=== PATIENT | female | born 1970 | race Two or more races ===

== ENCOUNTER 2017-01-18 05:08 | Emergency (ER) | payer MEDICAID ==
[~2017-01-18] VITALS: Ht 157.5 cm; Wt 93.9 kg
[~2017-01-18 05:08] MED LIST: CEPHALEXIN500 MG ORAL; COLACE100 MG ORAL; IBUPROFEN200 MG ORAL; KEFLEX500 MG ORAL; NAPROSYN500 M1 ORAL; NAPROXEN SODIU550 M1 ORAL; NAPROXEN500 M2 ORAL; NKM; NORCO 5-325 TA1 EACH ORAL; OMEPRAZOLE20 M2 ORAL; ZOFRAN ODT4 MG ORAL
[2017-01-18 05:27] VITALS: BP 133/86
[2017-01-18] MEDS ORDERED: PREPARATION H C51 GM TP (05:27)
[2017-01-18] MEDS ORDERED: PREPARATION H1 EAC3 RC (05:27)
[2017-01-18] MEDS ORDERED: LIDOCAINE HCL5 ML MM (05:27)
[2017-01-18] MEDS ORDERED: Lidocaine HCl 2% Jelly 5ml Tube TOPIC ONE (05:30)
[2017-01-18 05:37] VITALS: BP 133/86
--- NOTE | 2017-01-18 19:02 | Emergency Room Report ---
History of Present Illness General Chief Complaint: Pain Source: Patient Present Illness HPI 47 YOF with known hemorrhoids presents with rectal pain for 3 days, worse with defecation/straining. Has been taking stool softener and applying hydrocortisone cream. Blood on paper but no yara bleeding. Denies abd pain, nausea/vomiting, fever/chills, history of abd/pelvic surgery. Allergies: Coded Allergies: No Known Allergies (Unverified , 07/30/14) Patient History Past Medical History: other - hemorrhoids Past Surgical History: none Pertinent Family History: none Now: No Immunizations: UTD Reviewed Nursing Documentation: PMH: Agreed, PSxH: Agreed Nursing Documentation-PMH Hx Cardiac Problems: No Hx Diabetes: Yes Hx Cancer: No Hx Gastrointestinal Problems: Yes - Fatty Liver Hx Neurological Problems: No Review of Systems All Other Systems: negative except mentioned in HPI Physical Exam Vital Signs Date Time Temp Pulse Resp B/P Pulse Ox O2 Delivery O2 Flow Rate FiO2 01/18/17 05:09 97.9 72 16 133/86 97 01/18/17 05:27 Room Air Sp02 EP Interpretation: reviewed, normal General Appearance: normal inspection, well appearing, no apparent distress, alert Head: normocephalic, atraumatic Eyes: bilateral eye EOMI, bilateral eye PERRL ENT: normal ENT inspection, hearing grossly normal, normal voice Neck: normal inspection, full range of motion, supple, no bony tend Respiratory: normal inspection, lungs clear, normal breath sounds, no respiratory distress, no retraction, no wheezing Cardiovascular #1: regular rate, rhythm, no edema Gastrointestinal: normal inspection, normal bowel sounds, non tender, soft, no guarding, no hernia Rectal: deferred Genitourinary: no CVA tenderness Musculoskeletal: normal inspection, back normal, normal range of motion, Janeth' s Sign negative Neurologic: normal inspection, alert, oriented x3, responsive, feeder driver III-XII nml as tested, speech normal Psychiatric: normal inspection, judgement/insight normal, mood/affect normal Skin: normal inspection, normal color, no rash Lymphatic: normal inspection Medical Decision Making Diagnostic Impression: Primary Impression: Hemorrhoids Qualified Codes: K64.9 - Unspecified hemorrhoids ER Course Topical lidocaine applied in ED Rx hydrocortisone cream, suppository and topical lido Advised pMD followup for GI referral if no improvement DC home Last Vital Signs Date Time Temp Pulse Resp B/P Pulse Ox O2 Delivery O2 Flow Rate FiO2 01/18/17 05:37 97.9 78 16 133/86 97 Room Air Status: improved Disposition: HOME, SELF-CARE Condition: Improved Scripts Lidocaine Hcl (LIDOCAINE HCL) 5 Ml Jel.pf.tres 5 ML MM TID for 7 Days, #1 UNIT Prov: DEISI BURGER M.D. 01/18/17 Phenylephrine Hcl/Witch Fartun (PREPARATION H COOLING GEL) 51 Gm Gel..gram. 51 GM TP TID for 7 Days, GM Prov: DEISI BURGER M.D. 01/18/17 Phenylephrine HCl/[place] Butter (Preparation H Suppository) 1 Each Supp.rect 1 EACH RC BID for 7 Days, #14 SUPP Prov: DEISI BURGER M.D. 01/18/17 Referrals: NOT CHOSEN BRU[facility]/,REFERRING (PCP) Patient Instructions: Hemorrhoids, [id number] DEISI BURGER M.D. Jan 18, 2017 19:02
== END 2017-01-18 05:40 | disposition home or self-care (01) ==
LOC: EMR 05:25
DX: K64.9 Unspecified hemorrhoids (principal); E11.9 Type 2 diabetes mellitus without complications
CPT/HCPCS: 99284

== ENCOUNTER 2017-04-10 20:24 | Emergency (ER) | payer MEDICAID ==
[~2017-04-10] VITALS: Ht 162.6 cm; Wt 93.0 kg
[~2017-04-10 20:24] MED LIST changes: +LIDOCAINE HCL5 ML MM; +PREPARATION H C51 GM TP; +PREPARATION H1 EAC3 RC
[2017-04-10] MEDS ORDERED: Acetaminophen 500mg (ES) tab ORAL ONE (21:15)
[2017-04-10 22:38] LABS: APPEARANCE,URINE CLEAR; KETONES,URINE NEGATIVE (NEGATIVE); LEUKOCYTE ESTERASE ,URINE NEGATIVE (NEGATIVE); NITRITE,URINE NEGATIVE (NEGATIVE); PH,URINE 7 (4.5-8.0); PROTEIN,URINE NEGATIVE (NEGATIVE); UROBILINOGEN,URINE NORMAL MG/DL (0.0-1.0)
[2017-04-10] MEDS ORDERED: Ketorolac 30mg Inj IM ONE (23:30)
[2017-04-11] MEDS ORDERED: COLACE100 MG ORAL (00:20)
[2017-04-11] MEDS ORDERED: TYLENOL EXTRA500 MG ORAL (00:20)
[2017-04-11] MEDS ORDERED: MAGNESIUM CITR296 M1 PO (00:20)
[2017-04-11 01:11] VITALS: BP 130/88
--- NOTE | 2017-04-12 08:28 | Diagnostic Imaging Report ---
Indication: Abdominal pain Technique: Continuous helical transaxial imaging of the abdomen and pelvis was obtained from the lung bases to the pubic symphysis. No intravenous contrast was administered. Coronal 2-D reformats were also obtained. Total Dose length Product (DLP): [address] Dose Index Volume (CTDIvol): 30 mGy Comparison: none Findings: Appendix is normal. There is no nephrolithiasis or hydronephrosis. Lung bases are clear. No free fluid or free air identified. Suggestion of left ovarian cysts. Mild hypertrophy of the lower lumbar facets noted. Impression: No acute findings. Suggestion of left ovarian cysts. [facility] has communicated the preliminary results to the Emergency Department. Their findings are largely concordant with this report. The CT scanner at [facility] is accredited by the [employer] and the scans are performed using dose optimization techniques as appropriate to a performed exam including Automatic Exposure control.
--- NOTE | 2017-04-13 08:07 | Emergency Room Report ---
History of Present Illness General Chief Complaint: Female Urogenital Problems Source: Patient Present Illness HPI 47-year-old female presents to ED complaining of right-sided flank pain. States symptoms started yesterday. 8 out of 10, sharp, nonradiating. States she is having some dysuria. Denies hematuria. Denies fevers or chills. Denies nausea or vomiting. No other aggravating or relieving factors. Denies any other associated symptoms Allergies: Coded Allergies: No Known Allergies (Unverified , 07/30/14) Patient History Past Medical History: DM Pertinent Family History: none Social History: Denies: alcohol use, drug use, smoking Last Menstrual Period: Menopause Now: No Immunizations: UTD Reviewed Nursing Documentation: PMH: Agreed, PSxH: Agreed Nursing Documentation-PMH Past Medical History: No History, Except For Hx Cardiac Problems: No - High Chlosterol Hx Diabetes: Yes Hx Cancer: No Hx Gastrointestinal Problems: Yes - Fatty Liver Hx Neurological Problems: No Review of Systems All Other Systems: negative except mentioned in HPI Physical Exam Vital Signs Date Time Temp Pulse Resp B/P Pulse Ox O2 Delivery O2 Flow Rate FiO2 04/10/17 20:51 98.4 85 16 117/68 100 Room Air Sp02 EP Interpretation: reviewed, normal General Appearance: no apparent distress, alert, GCS 15, non-toxic, obese Head: normocephalic, atraumatic Eyes: bilateral eye PERRL, bilateral eye normal inspection ENT: hearing grossly normal, normal pharynx, no angioedema, normal voice Neck: full range of motion, supple/symm/no masses Respiratory: chest non-tender, lungs clear, normal breath sounds, speaking full sentences Cardiovascular #1: regular rate, rhythm, no edema Cardiovascular #2: 2+ carotid (R), 2+ carotid (L), 2+ radial (R), 2+ radial (L) , 2+ dorsalis pedis (R), 2+ dorsalis pedis (L) Gastrointestinal: normal bowel sounds, non tender, soft, non-distended, no guarding, no rebound Rectal: deferred Genitourinary: normal inspection, no CVA tenderness, CVA tenderness (R) Musculoskeletal: back normal, gait/station normal, normal range of motion, non- tender Neurologic: alert, oriented x3, responsive, motor strength/tone normal, sensory intact, speech normal Psychiatric: judgement/insight normal, memory normal, mood/affect normal, no suicidal/homicidal ideation Reflexes: 3+ bicep (R), 3+ bicep (L), 3+ tricep (R), 3+ tricep (L), 3+ knee (R) , 3+ knee (L) Skin: normal color, no rash, warm/dry, well hydrated Lymphatic: no adenopathy Medical Decision Making Diagnostic Impression: Primary Impression: Constipation Qualified Codes: K59.00 - Constipation, unspecified ER Course Hospital Course 47-year-old female presents to ED complaining of right-sided flank pain Differential diagnosis includes - kidney stone, pyelonephritis, muscular pain Clinical course Patient placed on stretcher. After initial history and physical I ordered UA and pain medications Labs -UA unremarkable CT- copious stool noted, no evidence of kidney stone Upon reassessment, patient states pain has improved. Given improvement in symptoms and lack of acute findings, I believe patient can be safely discharged to home. Patient agrees with plan I feel this is a highly complex case requiring extensive working including EKG/ Rhythm strip, Xray/CT/US, Blood/urine lab work, repeat exams while in ED, and administration of strong opiates/narcotics for pain control, admission to hospital or close patient follow up. Diagnosis - constipation Stable and discharged to home with Rx Mag citrate, Colace. instructed on high- fiber diet. Followup with PMD. Return to ED if symptoms recur or worsen Labs Test 04/10/17 21:58 Urine Color Pale yellow Urine Appearance Clear Urine pH 7 (4.5-8.0) Urine Specific [place] 1.015 (1.005-1.035) Urine Protein Negative (NEGATIVE) Urine Glucose (UA) Negative (NEGATIVE) Urine Ketones Negative (NEGATIVE) Urine Occult Blood Negative (NEGATIVE) Urine Nitrite Negative (NEGATIVE) Urine Bilirubin Negative (NEGATIVE) Urine Urobilinogen Normal MG/DL (0.0-1.0) Urine Leukocyte Esterase Negative (NEGATIVE) Urine HCG, Qualitative Negative CT/MRI/US Diagnostic Results CT/MRI/US Diagnostic Results : Imaging Test Ordered: CT A/P Impression R sided stool impaction. no evidence of kidney stone Last Vital Signs Date Time Temp Pulse Resp B/P Pulse Ox O2 Delivery O2 Flow Rate FiO2 04/11/17 01:11 98.8 66 18 130/88 100 Room Air Status: improved Disposition: HOME, SELF-CARE Condition: Stable Scripts Acetaminophen* (TYLENOL EXTRA STRENGTH*) 500 Mg Tablet 500 MG ORAL Q8H Y for Prn Headache/Temp > 101, #30 TAB 0 Refills Prov: DENISE AVERY M.D. 04/11/17 Magnesium Citrate (MAGNESIUM CITRATE) 296 Ml Solution 150 ML PO DAILY for 2 Days, UNIT Prov: DENISE AVERY M.D. 04/11/17 Docusate Sodium* (COLACE*) 100 Mg Capsule 100 MG ORAL THREE TIMES A DAY, #30 CAP Prov: DENISE AVERY M.D. 04/11/17 Referrals: NOT CHOSEN [facility]/,REFERRING (PCP) Patient Instructions: Constipation, Adult, [id number] DENISE AVERY M.D. Apr 13, 2017 08:07
== END 2017-04-11 01:11 | disposition home or self-care (01) ==
LOC: EMR 21:29
DX: K59.00 Constipation, unspecified (principal); R30.0 Dysuria; E11.9 Type 2 diabetes mellitus without complications
CPT/HCPCS: 74176; 81003; 81025; 96372; 99283; J1885

== ENCOUNTER 2017-05-06 17:18 | Emergency (ER) | payer MEDICAID ==
[~2017-05-06] VITALS: Ht 160 cm; Wt 72.6 kg
[~2017-05-06 17:18] MED LIST changes: +MAGNESIUM CITR296 M1 PO; +TYLENOL EXTRA500 MG ORAL
[2017-05-06 17:35] VITALS: BP 126/76
[2017-05-06] MEDS ORDERED: Morphine Sulfate 10mg/ml Inj IVP ONE (17:45)
--- NOTE | 2017-05-06 17:48 | Emergency Room Report ---
History of Present Illness General Chief Complaint: Abdominal Pain Source: Patient Present Illness HPI 47 YO Female presents to the ED c/o 08/18 in severity abdominal pain with nausea, vomiting, and diarrhea x 2 days. pt. localizes pain to the epigastric area, denies blood in the vomit or stool. pt reports subjective/ non measured fevers. denies recent travel or ill contacts, reports previous hx of Dm, and fatty liver, but denies right sided abdominal pain. pt. denies tenderness. denies rashes, frequency , dysuria, polydipsia. Denies CP, Palpitations, LOC, AMS, dizziness, Changes in Vision, Sensation, paresthesias, or a sudden severe headache. Allergies: Coded Allergies: No Known Allergies (Unverified , 07/30/14) Patient History Past Medical History: see triage record Past Surgical History: none Pertinent Family History: none Now: No Immunizations: UTD Reviewed Nursing Documentation: PMH: Agreed, PSxH: Agreed Nursing Documentation-PMH Past Medical History: No History, Except For Hx Cardiac Problems: No - High Chlosterol Hx Diabetes: Yes Hx Cancer: No Hx Gastrointestinal Problems: Yes - Fatty Liver Hx Neurological Problems: No Review of Systems All Other Systems: negative except mentioned in HPI Physical Exam Vital Signs Date Time Temp Pulse Resp B/P Pulse Ox O2 Delivery O2 Flow Rate FiO2 05/06/17 17:30 98.2 74 16 126/76 96 Room Air Sp02 EP Interpretation: reviewed, normal General Appearance: no apparent distress, alert, GCS 15, non-toxic Head: normocephalic, atraumatic Eyes: bilateral eye PERRL, bilateral eye normal inspection ENT: hearing grossly normal, normal pharynx, no angioedema, normal voice Neck: full range of motion, supple/symm/no masses Respiratory: lungs clear, normal breath sounds, speaking full sentences Cardiovascular #1: regular rate, rhythm, no edema Gastrointestinal: normal bowel sounds, soft, no guarding, no rebound, tenderness - epigastric (middle) no lower quadrant TTP, no peritoneal signs, abdomen is soft. Rectal: deferred Musculoskeletal: back normal, gait/station normal, normal range of motion, non- tender Neurologic: alert, oriented x3, responsive, motor strength/tone normal, sensory intact, speech normal Psychiatric: judgement/insight normal, memory normal, mood/affect normal Skin: normal color, no rash, warm/dry, well hydrated Medical Decision Making PA Attestation Dr. Chavira is my supervising Physician whom patient management has been discussed with. Diagnostic Impression: Primary Impression: Gastroenteritis ER Course 47 YO Female presents to the ED c/o 08/18 in severity abdominal pain with nausea, vomiting, and diarrhea x 2 days. pt. localizes pain to the epigastric area, denies blood in the vomit or stool. pt reports subjective/ non measured fevers. denies recent travel or ill contacts, reports previous hx of Dm, and fatty liver, but denies right sided abdominal pain. pt. denies tenderness. denies rashes, frequency , dysuria, polydipsia. Denies CP, Palpitations, LOC, AMS, dizziness, Changes in Vision, Sensation, paresthesias, or a sudden severe headache. Ddx considered but are not limited to Diverticulitis, acute appy, diarrhea,UC, PUD, GE, pancreatitis, gallstone Vital signs: are WNL, pt. is afebrile H&PE are most consistent with gastroenteritis ORDERS: -CBC, CMP, lipase, and UA all unremarkable no evidence of infection, electrolytes are ok. ED INTERVENTIONS: --- 1000NS, zantac 50mg, and zofran 4mg. -4mg Morphine IV for pain. -Gi Cocktail - Pt is able to tolerate oral fluids and GI Cocktail , stable to d/c home with close outpatient follow up. pt. is instructed to return to ED with worsening or new symptoms. DISCHARGE: At this time pt. is stable for d/c to home. Will provide printed patient care instructions, and any necessary prescriptions. Care plan and follow up instructions have been discussed with the patient prior to discharge. Labs Test 05/06/17 17:40 05/06/17 18:00 Urine Color Pale yellow Urine Appearance Clear Urine pH 5 (4.5-8.0) Urine Specific [place] 1.010 (1.005-1.035) Urine Protein Negative (NEGATIVE) Urine Glucose (UA) Negative (NEGATIVE) Urine Ketones Negative (NEGATIVE) Urine Occult Blood Negative (NEGATIVE) Urine Nitrite Negative (NEGATIVE) Urine Bilirubin Negative (NEGATIVE) Urine Urobilinogen Normal MG/DL (0.0-1.0) Urine Leukocyte Esterase Negative (NEGATIVE) White Blood Count 9.5 K/UL (4.8-10.8) Red Blood Count 4.30 M/UL (4.20-5.40) Hemoglobin 13.3 G/DL (12.0-16.0) Hematocrit 38.8 % (37.0-47.0) Mean Corpuscular Volume 90 FL (80-99) Mean Corpuscular Hemoglobin 30.9 PG (27.0-31.0) Mean Corpuscular Hemoglobin Concent 34.2 G/DL (32.0-36.0) Red Cell Distribution Width 11.4 % (11.6-14.8) Platelet Count 159 K/UL (150-450) Mean Platelet Volume 9.1 FL (6.5-10.1) Neutrophils (%) (Auto) 69.6 % (45.0-75.0) Lymphocytes (%) (Auto) 23.5 % (20.0-45.0) Monocytes (%) (Auto) 4.7 % (1.0-10.0) Eosinophils (%) (Auto) 1.5 % (0.0-3.0) Basophils (%) (Auto) 0.6 % (0.0-2.0) Sodium Level 141 mEQ/L (135-145) Potassium Level 3.9 mEQ/L (3.4-4.9) Chloride Level 102 mEQ/L (98-107) Carbon Dioxide Level 23 mEQ/L (20-30) Anion Gap 16 (5-15) Blood Urea Nitrogen 13 mg/dL (7-23) Creatinine 0.6 mg/dL (0.5-0.9) Estimat Glomerular Filtration Rate > 60 mL/min (>60) Glucose Level 115 mg/dL (74-106) Calcium Level 9.2 mg/dL (8.6-10.2) Total Bilirubin 0.5 mg/dL (0.0-1.2) Aspartate Amino Transf (AST/SGOT) 37 U/L (5-40) Alanine Aminotransferase (ALT/SGPT) 39 U/L (3-33) Alkaline Phosphatase 107 U/L (35-104) Total Protein 7.3 g/dL (6.6-8.7) Albumin 4.3 g/dL (3.5-5.2) Globulin 3.0 g/dL Albumin/Globulin Ratio 1.4 (1.0-2.7) Lipase 24 U/L (< 60) Last Vital Signs Date Time Temp Pulse Resp B/P Pulse Ox O2 Delivery O2 Flow Rate FiO2 05/06/17 17:35 98.2 16 126/76 96 Room Air 05/06/17 17:30 74 Disposition: HOME, SELF-CARE Condition: Stable Scripts Dicyclomine Hcl* (BENTYL*) 10 Mg Capsule 10 MG ORAL FOUR TIMES A DAY, #12 CAP Prov: Ame Rodríguez 05/06/17 Ranitidine Hcl* (ZANTAC*) 150 Mg Tablet 150 MG ORAL TWICE A DAY for 10 Days, #20 TAB Prov: Ame Rodríguez 05/06/17 Ondansetron Odt* (ZOFRAN ODT*) 4 Mg Tab.rapdis 4 MG ORAL Q6H Y for Nausea & Vomiting, #30 TAB Prov: Ame Rodríguez. 05/06/17 Patient Instructions: Abdominal Pain, Adult Additional Instructions: Take medications as directed. Follow up with PCP in 3-5 days Return sooner to ED if new symptoms occur, or current symptoms become worse. - Please note that this Emergency Department Report was dictated using [employer] line operator technology software, occasionally this can lead to erroneous entry secondary to interpretation by the dictation equipment. Ame Rodríguez May 06, 2017 17:48
[2017-05-06 18:11] LABS: APPEARANCE,URINE CLEAR; KETONES,URINE NEGATIVE (NEGATIVE); LEUKOCYTE ESTERASE ,URINE NEGATIVE (NEGATIVE); NITRITE,URINE NEGATIVE (NEGATIVE); PH,URINE 5 (4.5-8.0); PROTEIN,URINE NEGATIVE (NEGATIVE); UROBILINOGEN,URINE NORMAL MG/DL (0.0-1.0)
[2017-05-06 18:27] LABS: BASOPHILS % (AUTO) 0.6 % (0.0-2.0); EOSINOPHILS % (AUTO) 1.5 % (0.0-3.0); LYMPHOCYTES % (AUTO) 23.5 % (20.0-45.0); MEAN CORPUSCULAR HEMOGLOBIN 30.9 PG (27.0-31.0); MEAN CORPUSCULAR HGB CONC 34.2 G/DL (32.0-36.0); MEAN CORPUSCULAR VOLUME 90 FL (80-99); MEAN PLATELET VOLUME 9.1 FL (6.5-10.1); MONOCYTES % (AUTO) 4.7 % (1.0-10.0); NEUTROPHILS % (AUTO) 69.6 % (45.0-75.0); PLATELET COUNT 159 K/UL (150-450); RED CELL DISTRIBUTION WIDTH 11.4 % (11.6-14.8); WHITE BLOOD COUNT 9.5 K/UL (4.8-10.8)
[2017-05-06] MEDS ORDERED: Mylanta II UD 30ml ORAL ONE (18:30)
[2017-05-06] MEDS ORDERED: Lidocaine 2% Visc 15ml soln ORAL ONE (18:30)
[2017-05-06] MEDS ORDERED: Dicyclomine HCl 10mg/5ml oral soln ORAL ONE (18:30)
[2017-05-06 19:07] LABS: ALANINE AMINOTRANSFERASE 39 U/L (3-33); ALBUMIN/GLOBULIN RATIO 1.4 (1.0-2.7); ANION GAP 16 (5-15); ASPARTATE AMINO TRANSFERASE 37 U/L (5-40); CALCIUM 9.2 mg/dL (8.6-10.2); CARBON DIOXIDE 23 mEQ/L (20-30); CHLORIDE 102 mEQ/L (98-107); CREATININE 0.6 mg/dL (0.5-0.9); GLOMERULAR FILTRATION RATE > 60 mL/min (>60); HEMOLYSIS 17; LIPASE 24 U/L (< 60); POTASSIUM 3.9 mEQ/L (3.4-4.9); SODIUM 141 mEQ/L (135-145); TOTAL PROTEIN 7.3 g/dL (6.6-8.7)
[2017-05-06] MEDS ORDERED: BENTYL10 MG ORAL (19:21)
[2017-05-06] MEDS ORDERED: ZANTAC150 MG ORAL (19:21)
[2017-05-06] MEDS ORDERED: ZOFRAN ODT4 MG ORAL (19:21)
[2017-05-06 20:10] VITALS: BP 113/72
== END 2017-05-06 20:10 | disposition home or self-care (01) ==
LOC: EMR 18:15
DX: K52.9 Noninfective gastroenteritis and colitis, unspecified (principal); E11.9 Type 2 diabetes mellitus without complications
CPT/HCPCS: 36415; 80053; 81003; 82962; 83690; 85025; 96374; 96375; 99284; J2270; J2405

== ENCOUNTER 2017-11-07 16:06 | Emergency (ER) | payer MEDICAID ==
[~2017-11-07] VITALS: Ht 154.9 cm; Wt 81.6 kg
[~2017-11-07 16:06] MED LIST changes: +BENTYL10 MG ORAL; +ZANTAC150 MG ORAL
[2017-11-07] MEDS ORDERED: Ketorolac 60mg Inj IM ONE (17:30)
[2017-11-07] MEDS ORDERED: TAMIFLU75 MG ORAL (17:39)
[2017-11-07] MEDS ORDERED: PROMETHAZINE-D118 ML ORAL (17:39)
[2017-11-07] MEDS ORDERED: ZOFRAN4 M3 ORAL (17:39)
[2017-11-07] MEDS ORDERED: IBUPROFEN600 MG ORAL (17:39)
[2017-11-07 17:55] VITALS: BP 114/61
--- NOTE | 2017-11-07 21:53 | Emergency Room Report ---
History of Present Illness General Chief Complaint: Flu Like Symptoms Source: Patient, Medical Record Present Illness HPI The patient is a 47-year-old female presenting for her multiple complaints including cough, headache, fever, chills, nausea and vomiting. She denies any known sick contacts recent travel. She did not have flu shot this year. She is having 8/10 total body pain. She denies other symptoms including CP, SOB Allergies: Coded Allergies: ACETAMINOPHEN (Verified Allergy, Unknown, 11/07/17) Patient History Past Medical History: see triage record Pertinent Family History: none Last Menstrual Period: menopause Reviewed Nursing Documentation: PMH: Agreed, PSxH: Agreed Nursing Documentation-PMH Past Medical History: No History, Except For Hx Cardiac Problems: No - High Chlosterol Hx Diabetes: Yes Hx Cancer: No Hx Gastrointestinal Problems: Yes - Fatty Liver Hx Neurological Problems: No Review of Systems All Other Systems: negative except mentioned in HPI Physical Exam Vital Signs Date Time Temp Pulse Resp B/P (MAP) Pulse Ox O2 Delivery O2 Flow Rate FiO2 11/07/17 16:24 100.0 108 18 114/61 97 Room Air Sp02 EP Interpretation: reviewed, normal General Appearance: no apparent distress, alert, GCS 15, non-toxic Head: normocephalic, atraumatic ENT: hearing grossly normal, normal pharynx, no angioedema, normal voice Neck: full range of motion, supple/symm/no masses Respiratory: chest non-tender, lungs clear, normal breath sounds, no wheezing, speaking full sentences Cardiovascular #1: no edema, tachycardia Musculoskeletal: back normal, gait/station normal, normal range of motion, non- tender Neurologic: alert, oriented x3, responsive, motor strength/tone normal, sensory intact, speech normal Psychiatric: judgement/insight normal, memory normal, mood/affect normal, no suicidal/homicidal ideation Skin: normal color, no rash, warm/dry, well hydrated Medical Decision Making PA Attestation Dr. Mon is my supervising physician. Patient management was discussed with my supervising physician Diagnostic Impression: Primary Impression: Influenza ER Course The patient is a 47-year-old female presenting for her multiple complaints including cough, headache, fever, chills, nausea and vomiting. Differential diagnosis include but not limited to influenza, pharyngitis, sinusitis, AOM, bronchitis, PNA Physical exam: Patient is febrile. Lethargic HEENT exam reveals pharyngeal erythema. No exudate. Nasal congestion Lungs are clear to auscultation bilaterally. No respiratory distress Skin warm and dry She is given Toradol and Zofran The patient will be treated for influenza with prescription for Motrin, Tamiflu , and cough medication. She is given strict ER precautions. She was told this is highly contagious. Last Vital Signs Date Time Temp Pulse Resp B/P (MAP) Pulse Ox O2 Delivery O2 Flow Rate FiO2 11/07/17 17:55 100.0 108 18 114/61 97 Room Air Status: improved Disposition: HOME, SELF-CARE Condition: Improved Scripts D-Methorphan Hb/Prometh Hcl* (PROMETHAZINE-DM SYRUP*) 118 Ml Syrup 5 ML ORAL Q6H Y for For Cough, #118 ML 0 Refills Prov: BEATRIZ JONES P.A. 11/07/17 Ondansetron* (ZOFRAN*) 4 Mg Tablet 4 MG ORAL Q6H Y for Nausea & Vomiting, #15 TAB Prov: BEATRIZ JONES P.A. 11/07/17 Ibuprofen* (MOTRIN*) 600 Mg Tablet 600 MG ORAL Q8H Y for For Pain, #30 TAB 0 Refills Prov: MEÑOANBEATRIZ P.A. 11/07/17 Oseltamivir Phosphate (Tamiflu) 75 Mg Capsule 75 MG ORAL TWICE A DAY, #10 CAP Prov: TERZIANOLGAY P.A. 11/07/17 Referrals: NOT CHOSEN IPA/MD,REFERRING (PCP) Patient Instructions: Influenza, Adult Additional Instructions: I discussed my findings with the patient. All questions and concerns have been answered. Treatment and medication compliance have been addressed. I advised the patient that they need to follow up with PMD in 3-5 days. Return to ED if pain remains or worsens, cough worsens or remains, you notice blood in your sputum, you notice wheezing, you experience a fever, or if needed for any reason. Patient verbalized understanding of discharge instructions. BEATRIZ JONES Nov 07, 2017 21:53
== END 2017-11-07 17:58 | disposition home or self-care (01) ==
LOC: EMR 17:50
DX: J11.1 Influenza due to unidentified influenza virus with other respiratory manifestations (principal); R51 Headache; R11.2 Nausea with vomiting, unspecified; E11.9 Type 2 diabetes mellitus without complications; K76.0 Fatty (change of) liver, not elsewhere classified
CPT/HCPCS: 99284

== ENCOUNTER 2018-03-22 22:47 | Emergency (ER) | payer MEDICAID ==
[~2018-03-22] VITALS: Ht 154.9 cm; Wt 92.1 kg
[~2018-03-22 22:47] MED LIST changes: +IBUPROFEN600 MG ORAL; +PROMETHAZINE-D118 ML ORAL; +TAMIFLU75 MG ORAL; +ZOFRAN4 M3 ORAL
[2018-03-22 23:35] VITALS: BP 126/73
[2018-03-23] MEDS ORDERED: IBUPROFEN600 MG ORAL (00:48)
[2018-03-23 00:55] VITALS: BP 0/0
--- NOTE | 2018-03-23 01:13 | Emergency Room Report ---
History of Present Illness General Chief Complaint: Pain Source: Patient Present Illness HPI Patient presents with complaints of left knee pain Ongoing for the past 7 days patient cannot recall any specific movement or trauma that started the pain However she feels a sharp shooting pain in the inside of the knee Denies any calf pain or swelling Denies any chest pain or shortness of breath Denies any obvious fall or trauma Pain is worse with bending downward and general walking Allergies: Coded Allergies: No Known Allergies (Unverified , 03/22/18) Patient History Past Medical History: see triage record Pertinent Family History: none Last Menstrual Period: 02/2018 Now: No Reviewed Nursing Documentation: PMH: Agreed; PSxH: Agreed Nursing Documentation-PMH Past Medical History: No Stated History Hx Cardiac Problems: No Hx Diabetes: Yes Hx Cancer: No Hx Gastrointestinal Problems: Yes - Fatty Liver Hx Neurological Problems: No Review of Systems All Other Systems: negative except mentioned in HPI Physical Exam Vital Signs Date Time Temp Pulse Resp B/P (MAP) Pulse Ox O2 Delivery O2 Flow Rate FiO2 03/22/18 23:21 98.1 68 16 126/73 95 Room Air 98.1 Sp02 EP Interpretation: reviewed, normal General Appearance: well appearing, no apparent distress Head: normocephalic, atraumatic Eyes: bilateral eye PERRL, bilateral eye EOMI ENT: normal pharynx Neck: full range of motion, supple Respiratory: lungs clear Cardiovascular #1: regular rate, rhythm, no edema Gastrointestinal: non tender Musculoskeletal: other - Patient is tender on palpation of the patella on the left side, there is no laxity with anterior/posterior trauma. No obvious effusion Neurologic: alert, oriented x3, responsive, director of customer service III-XII nml as tested, motor strength/tone normal Skin: normal color, no rash Lymphatic: no adenopathy Medical Decision Making Diagnostic Impression: Primary Impression: knee pain ER Course Patient's imaging x-ray does not show acute pathology Given the type of pain in the worsening with standing or walking likely ligamental/disc pathology involved patient requires close follow-up Outpatient evaluation and possible MRI as needed Other X-Ray Diagnostic Results Other X-Ray Diagnostic Results : X-Ray ordered: Left knee # of Views/Limited Vs Complete: 3 View Indication: Pain EP Interpretation: Yes Interpretation: no dislocation, no soft tissue swelling, no fractures Impression: No acute disease Electronically Signed by: Adan Marshall DO Last Vital Signs Date Time Temp Pulse Resp B/P (MAP) Pulse Ox O2 Delivery O2 Flow Rate FiO2 03/23/18 00:52 98.1 03/22/18 23:21 68 16 126/73 95 Room Air Status: improved Disposition: HOME, SELF-CARE Condition: Improved Scripts Ibuprofen* (MOTRIN*) 600 Mg Tablet 600 MG ORAL Q8H PRN for For Pain, #20 TAB 0 Refills Prov: Adan Marshall DO 03/23/18 Referrals: NOT CHOSEN IPA/MD,REFERRING (PCP) Patient Instructions: Knee Pain, [id number] Additional Instructions: Patient is provided with the discharge instructions notified to follow up with primary doctor in the next 2-3 days otherwise return to the er with any worsening symptoms. Please note that this report is being documented using [place] [employer] technology. This can lead to erroneous entry secondary to incorrect interpretation by the dictating instrument. Adan Marshall DO March 23, 2018 01:13
--- NOTE | 2018-03-23 12:14 | Diagnostic Imaging Report ---
Indication: Left knee pain for 3 days Technique: 3 views of the left knee Comparison: None Findings: No suprapatellar effusion. No acute fractures. No dislocations. The joint spaces are preserved Impression: Negative
== END 2018-03-23 00:55 | disposition home or self-care (01) ==
LOC: EMR 23:12
DX: M25.562 Pain in left knee (principal); E11.9 Type 2 diabetes mellitus without complications
CPT/HCPCS: 99283

== ENCOUNTER 2018-09-19 20:01 | Emergency (ER) | payer MEDICAID ==
[~2018-09-19] VITALS: Ht 152.4 cm; Wt 90.7 kg
[2018-09-19 20:20] VITALS: BP 129/68
[2018-09-19 21:12] LABS: BASOPHILS % (AUTO) 1.2 % (0.0-2.0); EOSINOPHILS % (AUTO) 3.1 % (0.0-3.0); HEMOGLOBIN 13.9 G/DL (12.0-16.0); LYMPHOCYTES % (AUTO) 44.4 % (20.0-45.0); MEAN CORPUSCULAR VOLUME 86 FL (80-99); NEUTROPHILS % (AUTO) 44.3 % (45.0-75.0); PLATELET COUNT 204 K/UL (150-450); RED BLOOD COUNT 4.63 M/UL (4.20-5.40); RED CELL DISTRIBUTION WIDTH 10.8 % (11.6-14.8); WHITE BLOOD COUNT 7.1 K/UL (4.8-10.8)
[2018-09-19 21:13] LABS: APPEARANCE,URINE CLEAR; BILIRUBIN, URINE NEGATIVE (NEGATIVE); COLOR,URINE AMBER; GLUCOSE, URINE (UA) NEGATIVE (NEGATIVE); KETONES,URINE NEGATIVE (NEGATIVE); LEUKOCYTE ESTERASE ,URINE 1+ (NEGATIVE); NITRITE,URINE NEGATIVE (NEGATIVE); PH,URINE 5 (4.5-8.0); PROTEIN,URINE NEGATIVE (NEGATIVE); UROBILINOGEN,URINE 1 MG/DL (0.0-1.0)
--- NOTE | 2018-09-19 21:13 | Emergency Room Report ---
History of Present Illness General Chief Complaint: Pain Source: Patient Present Illness HPI Patient is a 48 old female presenting for multiple symptoms including headache, left arm pain and numbness, and left leg pain and numbness. This began yesterday for no apparent reason. Symptoms have not improved. She denies any injury. She denies any medical history and states that she does not use any medications. She denies any drug use. She has used Tylenol which does help. She denies any other symptoms including N, V, F, chills, blurred vision, SOB, CP Allergies: Coded Allergies: No Known Allergies (Unverified , 03/22/18) Patient History Past Medical History: see triage record Pertinent Family History: none Last Menstrual Period: 2 years ago Now: No Reviewed Nursing Documentation: PMH: Agreed; PSxH: Agreed Nursing Documentation-PMH Past Medical History: No Stated History Hx Cardiac Problems: No Hx Diabetes: Yes Hx Cancer: No Hx Gastrointestinal Problems: Yes - Fatty Liver Hx Neurological Problems: No Review of Systems All Other Systems: negative except mentioned in HPI Physical Exam Vital Signs Date Time Temp Pulse Resp B/P (MAP) Pulse Ox O2 Delivery O2 Flow Rate FiO2 09/19/18 20:07 98.2 76 16 129/68 93 Room Air Sp02 EP Interpretation: reviewed, normal General Appearance: no apparent distress, alert, GCS 15, non-toxic Head: normocephalic, atraumatic Eyes: bilateral eye normal inspection, bilateral eye PERRL ENT: hearing grossly normal, normal pharynx, no angioedema, normal voice Neck: full range of motion, supple/symm/no masses Respiratory: chest non-tender, lungs clear, normal breath sounds, speaking full sentences Cardiovascular #1: regular rate, rhythm, no edema Gastrointestinal: normal bowel sounds, non tender, soft, non-distended, no guarding, no rebound Musculoskeletal: back normal, gait/station normal, normal range of motion, tender - L arm and L leg diffusely tender to touch Neurologic: alert, oriented x3, responsive, motor strength/tone normal, sensory intact, speech normal Psychiatric: judgement/insight normal, memory normal, mood/affect normal, no suicidal/homicidal ideation Skin: normal color, no rash, warm/dry, well hydrated Lymphatic: no adenopathy Medical Decision Making PA Attestation Dr. Mensah is my supervising physician. Patient management was discussed with my supervising physician Diagnostic Impression: Primary Impression: Neuropathy ER Course Patient is a 48 old female presenting for multiple symptoms including headache, left arm pain and numbness, and left leg pain and numbness. DDx considered but not limited to: CVA, neuropathy, DM, anxiety, muscle strain, among others PE: NAD. Head NC/AT. PERRL. EOMI. Neck soft and supple. RRR. Lungs CTA bilat. Extremity strength 5/5 bilat. Normal gait Sensation to L upper and lower ext diminished with soft touch TTP over the L knee. No edema or deformity. Xray of L knee unremarkable. CT head unremarkable. She is given prescription for motrin and gabapentin and told to F/U with her PMD balbir. ER precautions given. Interpretation provided by Anjana. Laboratory Tests Test 09/19/18 20:55 White Blood Count 7.1 K/UL (4.8-10.8) Red Blood Count 4.63 M/UL (4.20-5.40) Hemoglobin 13.9 G/DL (12.0-16.0) Hematocrit 40.0 % (37.0-47.0) Mean Corpuscular Volume 86 FL (80-99) Mean Corpuscular Hemoglobin 30.1 PG (27.0-31.0) Mean Corpuscular Hemoglobin Concent 34.8 G/DL (32.0-36.0) Red Cell Distribution Width 10.8 % (11.6-14.8) L Platelet Count 204 K/UL (150-450) Mean Platelet Volume 8.4 FL (6.5-10.1) Neutrophils (%) (Auto) 44.3 % (45.0-75.0) L Lymphocytes (%) (Auto) 44.4 % (20.0-45.0) Monocytes (%) (Auto) 7.0 % (1.0-10.0) Eosinophils (%) (Auto) 3.1 % (0.0-3.0) H Basophils (%) (Auto) 1.2 % (0.0-2.0) Prothrombin Time 9.9 SEC (9.30-11.50) Prothrombin Time INR 0.9 (0.9-1.1) PTT 27 SEC (23-33) Urine Color [place] Urine Appearance Clear Urine pH 5 (4.5-8.0) Urine Specific [place] 1.025 (1.005-1.035) Urine Protein Negative (NEGATIVE) Urine Glucose (UA) Negative (NEGATIVE) Urine Ketones Negative (NEGATIVE) Urine Blood Negative (NEGATIVE) Urine Nitrite Negative (NEGATIVE) Urine Bilirubin Negative (NEGATIVE) Urine Ictotest Negative (NEGATIVE) Urine Urobilinogen 1 MG/DL (0.0-1.0) H Urine Leukocyte Esterase 1+ (NEGATIVE) H Urine RBC 0-2 /HPF (0 - 2) Urine WBC 5-10 /HPF (0 - 2) H Urine Squamous Epithelial Cells Moderate /LPF (NONE/OCC) H Urine Bacteria Few /HPF (NONE) Urine HCG, Qualitative Negative (NEGATIVE) Sodium Level 141 MMOL/L (136-145) Potassium Level 3.5 MMOL/L (3.5-5.1) Chloride Level 106 MMOL/L (98-107) Carbon Dioxide Level 25 MMOL/L (21-32) Anion Gap 10 mmol/L (5-15) Blood Urea Nitrogen 18 mg/dL (7-18) Creatinine 0.8 MG/DL (0.55-1.30) Estimate Glomerular Filtration Rate > 60 mL/min (>60) Glucose Level 123 MG/DL (74-106) H Calcium Level 9.1 MG/DL (8.5-10.1) Total Bilirubin 0.5 MG/DL (0.2-1.0) Aspartate Amino Transferase (AST) 34 U/L (15-37) Alanine Aminotransferase (ALT) 56 U/L (12-78) Alkaline Phosphatase 141 U/L (46-116) H Creatine Kinase MB 1.3 NG/ML (0.0-3.6) Troponin I 0.000 ng/mL (0.000-0.056) Total Protein 8.2 G/DL (6.4-8.2) Albumin 4.2 G/DL (3.4-5.0) Globulin 4.0 g/dL Albumin/Globulin Ratio 1.0 (1.0-2.7) Lipase 128 U/L (73-393) Lab Results Impression Labs unremarkable. UA shows some bacteria and WBCs. pt denies vaginal DC, itching, dysuria. Chest X-Ray Diagnostic Results Chest X-Ray Diagnostic Results : Chest X-Ray Ordered: Yes # of Views/Limited/Complete: 1 View Indication: Other - L sided pain EP Interpretation: Yes PA Xray: Interpretation reviewed, by supervising , and agrees with findings. Interpretation: no consolidation, no effusion, no pneumothorax, no acute cardiopulmonary disease Impression: No acute disease Electronically Signed by: Jack Jones PA-C Other X-Ray Diagnostic Results Other X-Ray Diagnostic Results : X-Ray ordered: L knee # of Views/Limited Vs Complete: 3 View Indication: Pain EP Interpretation: Yes PA Xray: Interpretation reviewed, by supervising MD, and agrees with findings. Interpretation: no dislocation, no soft tissue swelling, no fractures Impression: No acute disease Electronically Signed by: Jack Jones PA-C Last Vital Signs Date Time Temp Pulse Resp B/P (MAP) Pulse Ox O2 Delivery O2 Flow Rate FiO2 09/19/18 20:07 98.2 76 16 129/68 93 Room Air Status: improved Disposition: HOME, SELF-CARE Condition: Improved Scripts Ibuprofen* (MOTRIN*) 600 Mg Tablet 600 MG ORAL Q8H PRN for For Pain, #30 TAB 0 Refills Prov: JACK JONESAMickey 09/19/18 Gabapentin* (GABAPENTIN*) 300 Mg Capsule 300 MG ORAL BID, #30 CAP 0 Refills Prov: JACK JONESAMickey 09/19/18 Referrals: NOT CHOSEN [facility]/,REFERRING (PCP) JACK JONES Sep 19, 2018 21:13
[2018-09-19 21:22] LABS: INR 0.9 (0.9-1.1)
[2018-09-19 21:25] LABS: ANION GAP 10 mmol/L (5-15); BLOOD UREA NITROGEN 18 mg/dL (7-18); CALCIUM 9.1 MG/DL (8.5-10.1); CARBON DIOXIDE 25 MMOL/L (21-32); CHLORIDE 106 MMOL/L (98-107); CREATININE 0.8 MG/DL (0.55-1.30); POTASSIUM 3.5 MMOL/L (3.5-5.1); SODIUM 141 MMOL/L (136-145)
[2018-09-19 21:38] LABS: ALANINE AMINOTRANSFERASE 56 U/L (12-78); ALBUMIN 4.2 G/DL (3.4-5.0); ALKALINE PHOSPHATASE 141 U/L (46-116); ASPARTATE AMINO TRANSFERASE 34 U/L (15-37); BILIRUBIN,TOTAL 0.5 MG/DL (0.2-1.0); CKMB 1.3 NG/ML (0.0-3.6)
[2018-09-19] MEDS ORDERED: GABAPENTIN300 MG ORAL (22:20)
[2018-09-19] MEDS ORDERED: IBUPROFEN600 MG ORAL (22:20)
[2018-09-19 22:45] VITALS: BP 129/68
--- NOTE | 2018-09-20 10:07 | Diagnostic Imaging Report ---
Indication: Chest pain Technique: One view of the chest Comparison: none Findings: There is central bronchial wall thickening. Lungs and pleural spaces are otherwise clear. The heart is upper limits normal in size Impression: Possible bronchitis. No acute process otherwise
--- NOTE | 2018-09-20 10:08 | Diagnostic Imaging Report ---
Indication: Knee pain Technique: 3 views of the left knee Comparison: None Findings: There is a suprapatellar effusion. No acute fractures. No dislocations. The joint spaces are preserved Impression: Negative
--- NOTE | 2018-09-20 12:26 | Diagnostic Imaging Report ---
Indication: Headache, left arm pain and numbness in left leg pain and numbness Technique: Continuous helical CT scanning of the head was performed without intravenous contrast material. Axial and coronal 5 mm sections were generated. Radiation dose was minimized using automated exposure control Dose: Total Dose Length Product - DLP 1340.[address] Dose Index - CTDIvol(s) 70.38 mGy. Comparison: none Findings: The ventricular system is normal in size and configuration. There is no shift of midline structures. No abnormal extra-axial fluid collections are noted. There is no evidence of intracerebral bleeding. No other abnormal high or low density areas are noted within the brain. Yang-white differentiation is normal. Intact calvarium. The mastoids are clear. The visualized orbits and sinuses are unremarkable. Impression: Normal CT scan of the head without contrast material. This agrees with the preliminary interpretation provided overnight by [facility]. The CT scanner at [facility] is accredited by the [employer] and the scans are performed using protocols designed to limit radiation exposure to as low as reasonably achievable to attain images of sufficient resolution adequate for diagnostic evaluation.
== END 2018-09-19 22:45 | disposition home or self-care (01) ==
LOC: EMR 20:39
DX: G62.9 Polyneuropathy, unspecified (principal); R51 Headache; M79.602 Pain in left arm; M79.605 Pain in left leg; E11.9 Type 2 diabetes mellitus without complications; K76.0 Fatty (change of) liver, not elsewhere classified
CPT/HCPCS: 36415; 70450; 71045; 80053; 81003; 81025; 82553; 83690; 84484; 85025; 85610; 85730; 96360; 96361; 99284

== ENCOUNTER 2019-08-22 20:50 | Emergency (ER) | payer MEDICAID ==
[~2019-08-22] VITALS: Ht 167.6 cm; Wt 99.8 kg
[~2019-08-22 20:50] MED LIST changes: +GABAPENTIN300 MG ORAL
--- NOTE | 2019-08-22 21:02 | NUR ---
ED Nurse Note: Pain in the right knee patient currently with the MD. Await orders.
--- NOTE | 2019-08-22 21:05 | NUR ---
ED Nurse Note: With language assistance. Patient was walking down steps today approx 3pm and tripped and has no pain - but has a burning sensation to the right hernandez area. No obvious bruising, swelling or injury. Await radiography.
--- NOTE | 2019-08-22 21:06 | Emergency Room Report ---
History of Present Illness General Chief Complaint: Lower Extremity Injury Source: Patient Present Illness HPI Is a 49-year-old female with history of diabetes. She presents with chief complaint of right knee pain. Onset was acute and occurred this afternoon. She was walking on the steps and felt sharp pain in the knee. Now with a burning sensation rating down the hernandez. Worse with movement. Worse with palpation. Worse with walking. Better with rest. Pain is 8 out of 10. Did not fall. No direct trauma. Allergies: Coded Allergies: No Known Allergies (Unverified , 03/22/18) Patient History Past Medical History: see triage record, old chart reviewed, DM Past Surgical History: none Pertinent Family History: none Social History: Denies: smoking Last Menstrual Period: 2014 Now: No Immunizations: other Reviewed Nursing Documentation: PMH: Agreed; PSxH: Agreed Nursing Documentation-PMH Hx Cardiac Problems: No Hx Diabetes: Yes Hx Cancer: No Hx Gastrointestinal Problems: Yes - Fatty Liver Hx Neurological Problems: No Review of Systems Eye: Denies: eye pain, blurred vision ENT: Denies: ear pain, nose congestion, throat swelling Respiratory: Denies: cough, shortness of breath Cardiovascular: Denies: chest pain, palpitations Gastrointestinal: Denies: abdominal pain, diarrhea, nausea, vomiting Musculoskeletal: Reports: joint pain; Denies: back pain Skin: Denies: rash Neurological: Denies: headache, numbness Endocrine: Denies: increased thirst, increased urine Hematologic/Lymphatic: Denies: easy bruising All Other Systems: negative except mentioned in HPI Physical Exam Vital Signs Date Time Temp Pulse Resp B/P (MAP) Pulse Ox O2 Delivery O2 Flow Rate FiO2 08/22/19 20:56 98.1 75 16 126/77 (93) 95 Room Air Vitals normal Sp02 EP Interpretation: reviewed, normal General Appearance: well appearing, no apparent distress, alert Head: normocephalic, atraumatic Eyes: bilateral eye PERRL, bilateral eye EOMI ENT: hearing grossly normal, normal pharynx Neck: full range of motion, supple, no meningismus Respiratory: chest non-tender, lungs clear, normal breath sounds Cardiovascular #1: regular rate, rhythm, no murmur Gastrointestinal: normal bowel sounds, non tender, no mass, no organomegaly, no bruit, non-distended Musculoskeletal: back normal, gait/station normal, normal range of motion, tender - Over the medial collateral ligament. Mild effusion. Knee is stable. Full range of motion. No warmth or redness. Psychiatric: mood/affect normal Procedures Splinting Splinting : Consent: Verbal Location: Knee, Rt Pre-Made Type: SHERRELL wrap Pre-Proc Neuro Vasc Exam: normal Post-Proc Neuro Vasc Exam: normal Patient Tolerated: Well Complications: None Medical Decision Making Diagnostic Impression: Primary Impression: Sprain of unspecified site of right knee, initial encounter ER Course This patient presents with a knee sprain. No fracture dislocation. No evidence of septic joint or other infection. Will discharge home. Other X-Ray Diagnostic Results Other X-Ray Diagnostic Results : X-Ray ordered: Right knee x-rays # of Views/Limited Vs Complete: 4 View Indication: Pain EP Interpretation: Yes Interpretation: no dislocation, no soft tissue swelling, no fractures Impression: No acute disease Electronically Signed by: Shaun Enrique MD Last Vital Signs Date Time Temp Pulse Resp B/P (MAP) Pulse Ox O2 Delivery O2 Flow Rate FiO2 08/22/19 20:56 98.1 75 16 126/77 (93) 95 Room Air Status: improved Disposition: HOME, SELF-CARE Condition: Stable Scripts Ibuprofen* (MOTRIN*) 600 Mg Tablet 600 MG ORAL THREE TIMES A DAY, #30 TAB 0 Refills Prov: Shaun Enrique MD 08/22/19 Patient Instructions: Knee Sprain Additional Instructions: Elevate your leg. Ice pack to the area. If not better in 1 to 2 weeks, you may need an MRI. Follow-up with your doctor for this. Return if symptoms worsen. Shaun Enrique MD Aug 22, 2019 21:06
[2019-08-22] MEDS ORDERED: IBUPROFEN600 MG ORAL (21:26)
[2019-08-22 21:35] VITALS: BP 126/77
--- NOTE | 2019-08-22 21:35 | NUR ---
ER DISCHARGE NOTE: Patient is cleared to be discharged per ERMD, pt is aox4, on room air, with stable vital signs. pt was given dc and prescription instructions, pt was able to verbalize understanding, pt id band removed without complications. pt is able to ambulate with steady gait using crutches. pt took all belongings. Patient crutches provided by EMT with advice and instruction. Patient accompanied home by relative waiting in waiting area.
--- NOTE | 2019-08-22 23:35 | NUR ---
Note kikedimple in EDM - 08/23/19 at 0434 by FIONA ER DISCHARGE NOTE: Patient is cleared to be discharged per ERMD, pt is aox4, on room air, with stable vital signs. pt was given dc and prescription instructions, pt was able to verbalize understanding, pt id band removed without complications. pt is able to ambulate with steady gait using crutches. pt took all belongings. Patient crutches provided by EMT with advice and instruction.
--- NOTE | 2019-08-23 10:48 | Diagnostic Imaging Report ---
Indication: Right knee pain Technique: 3 views of the right knee Comparison: None Findings: No suprapatellar effusion. No acute fractures. No dislocations. There are degenerative changes of the patellofemoral joint, mild. Impression: Mild degenerative changes No acute bony trauma
== END 2019-08-22 21:35 | disposition home or self-care (01) ==
LOC: EMR 21:08
DX: S83.91XA Sprain of unspecified site of right knee, initial encounter (principal); E11.9 Type 2 diabetes mellitus without complications; X58.XXXA Exposure to other specified factors, initial encounter; Y93.01 Activity, walking, marching and hiking; Y92.9 Unspecified place or not applicable
CPT/HCPCS: 73562; Z7502; 99283